=== PATIENT | male | born 1965 | race Caucasian/White ===

== ENCOUNTER 2017-11-01 14:34 | Emergency (ER) | payer OTHER ==
--- OUTSIDE RECORDS SUMMARY | 2017-11-01 14:37 | XMS REPORT | Continuity of Care Document ---
:1965 Author Organization Interface Problems Problem Status Onset Classification Date Comments Source Date Reported Radiculopathy, 10/27/[address] CERV PAIN Active [address] CERVICAL NECK Active Condition 12/26/2014 [facility] PAIN 5 Neuro Obesity Active Problem 10/29/2017 [facility] Neuro,[facility]ly [facility] Other specified 10/27/2017 [facility] spinal cord Center Spinal stenosis, 10/27/2017 [facility] region [facility] Osteophyte, 10/27/2017 [facility] vertebrae [facility] Center Essential 10/27/2017 [facility] hypertension [facility] Center Gastro-esophagea 10/27/2017 [facility] l reflux disease [facility] esophagitis Obesity, 10/27/2017 [facility] Body mass index 10/27/2017 [facility] 35.0-35.9, adult Medical [place] Polyneuropathy, 10/27/2017 [facility] Center Obstructive 10/27/2017 [facility] sleep apnea Medical (pediatric) Center Medications Medication Details Route Status Patient Ordering Order Source Instructions Provider Date pregabalin 50 MG
50 mg=1 [facility], PO, TID, # 2018 Neuro [Lyrica] 90 cap, 1 Refill(s), called to pharmacy meloxicam 15 MG
15 mg=1 [facility] tab, PO, Daily, 2018 Neuro [Mobic] # 90 tab, 1 Refill(s), [facility] Methocarbamol
500 mg=1 Active 08/30/ [facility] 500 MG Oral tab, PO, QID, X 2018 Neuro Tablet [Robaxin] 30 day, # 120 tab, 1 Refill(s), Pharmacy: [facility] Methocarbamol
500 mg=1 No Longer 07/21/ [place] 500 MG Oral tab, PO, QID, Active 2018 Medical Tablet [Robaxin] PRN muscle pain, Center X 14 day, # 56 tab, 0 Refill(s) magnesium
8.725 No Longer [place] citrate 58.2 os=629 ml, PO, Active 2017 Medical MG/ML Oral ONCE, # 300 ml, Center Solution 0 Refill(s) {21
See No Longer [facility] (Methylprednisol Instructions, Active 2017 Medical one 4 MG Oral PO, Take by [place] Tablet [Medrol]) mouth as } Pack [Medrol directed on Dosepak] label., # 1 Pack, 0 Refill(s) Docusate Sodium
100 mg=1 Active [place] 100 MG Oral cap, PO, BID, 2018 Medical Capsule [Colace] PRN [place] Constipation, # 60 cap, 0 Refill(s) famotidine
20 mg, 2 No Longer [facility] mL, Route: IVP, Active 2017 Medical Drug form: INJ, [place] Q12H, Dosing Weight 107.727, kg, Start date: 07/20/17 21:00:00 PATTERN ILLUSTRATOR, Duration: 30 day, Stop date: 08/19/17 9:00:00 CDT
Notes: (Same as: Pepcid) Can be dilute in 5-10cc NS IVP: Slow IV push over at least 2 minutes. Ambien
5 mg, 1 No Longer [facility] tab, Route: PO, Active 2017 Medical Drug form: TAB, Center Bedtime, Dosing Weight 107.727, kg, PRN as needed for sleep, Start date: 07/20/17 19:01:00 PATTERN ILLUSTRATOR, Duration: 30 day, Stop date: 08/19/17 19:00:00 CDT
Notes: (Same As: Ambien) ceFAZolin
2 gm, 20 No Longer [facility] mL, Route: IVPB, Active 2017 Medical Drug form: SOLN, Center [id number], Dosing Weight 107.727, kg, For >/=70kg, Start date: 07/20/17 15:00:00 PATTERN ILLUSTRATOR, Duration: 1 day, Stop date: 07/21/17 7:00:00 PATTERN ILLUSTRATOR, ABX Indication: Surgical Prophylaxis
Notes: (Same as Ancef) Dexamethasone
4 mg, 1 mL, No Longer [facility] Route: IVP, Drug Active 2017 Medical form: INJ, Q6H, Center Dosing Weight 107.727, kg, Start date: 07/20/17 13:00:00 PATTERN ILLUSTRATOR, Duration: 1 day, Stop date: 07/21/17 7:00:00 PATTERN ILLUSTRATOR
Notes: Concentration: 4mg/ml Docusate Sodium
100 mg, 1 No Longer [facility] 100 MG Oral cap, Route: PO, Active 2017 Medical Capsule Drug form: CAP, Center Q12H, Dosing Weight 107.727, kg, Start date: 07/20/17 9:00:00 PATTERN ILLUSTRATOR, Duration: 30 day, Stop date: 08/18/17 21:00:00 CDT
Notes: (Same as: Colace) (Do Not Crush) Famotidine
20 mg, 2 Inactive [facility] mL, Route: IVP, 2017 Medical Drug form: INJ, Center Q12H, Dosing Weight 107.727, kg, Start date: 07/20/17 9:00:00 PATTERN ILLUSTRATOR, Duration: 30 day, Stop date: 08/18/17 21:00:00 CDT
Notes: (Same as: Pepcid) Can be dilute in 5-10cc NS IVP: Slow IV push over at least 2 minutes. metoprolol
25 mg, 1 No Longer [facility] tartrate tab, Route: PO, Active 2017 Medical Drug form: TAB, Center BID, Dosing Weight 107.727, kg, Start date: 07/20/17 9:00:00 PATTERN ILLUSTRATOR, Duration: 30 day, Stop date: 08/18/17 17:00:00 CDT
Notes: (Same as: Lopressor) Hydromorphone
0.5 mg, Inactive [facility] Route: IVP, 2018 Medical Q5Min, Dosing Center Weight 107.727, kg, PRN Pain Score 7-10, Start date: 07/20/17 8:49:00 PATTERN ILLUSTRATOR, Duration: 4 doses or times, Stop date: Limited # of times Naloxone
0.4 mg, Inactive [facility] Route: IVP, 2018 Medical Q2MIN, Dosing Center Weight 107.727, kg, PRN Narcotic Reversal, Start date: 07/20/17 8:49:00 PATTERN ILLUSTRATOR, Duration: 8 doses or times, Stop date: Limited # of times Flumazenil
0.2 mg, Inactive [facility] Route: IVP, PRN, 2018 Medical Dosing Weight Center 107.727, kg, PRN Benzodiazepine Reversal, Initial dose, Start date: 07/20/17 8:49:00 PATTERN ILLUSTRATOR, Duration: 30 day, Stop date: 08/19/17 9:48:00 CDT Ondansetron
4 mg, Inactive [facility] Route: IVP, 2017 Medical ONCE, Dosing Center Weight 107.727, kg, PRN Nausea & Vomiting, Start date: 07/20/17 8:49:00 PATTERN ILLUSTRATOR Oxycodone
5 mg, Inactive 07/20[facility] Route: PO, Drug 2017 Medical form: TAB, Q4H, Center Dosing Weight 107.727, kg, PRN Pain Score 4-6, Start date: 07/20/17 8:49:00 PATTERN ILLUSTRATOR, Duration: 30 day, Stop date: 08/19/17 8:48:00 CDT sugammadex
Route: IV, Inactive [facility] (ANES) Drug form: SOLN, 2017 Medical ONCE, Stop date: Center 07/20/17 8:46:00 PATTERN ILLUSTRATOR Ondansetron
4 mg, Inactive 07/20[facility] Route: IVP, 2018 Medical ONCE, Dosing Center Weight 107.727, kg, PRN Nausea & Vomiting, Start date: 07/20/17 8:44:00 PATTERN ILLUSTRATOR Oxycodone
5 mg, Inactive 07/20[facility] Route: PO, Drug 2017 Medical form: TAB, Q4H, Center Dosing Weight 107.727, kg, PRN Pain Score 4-6, Start date: 07/20/17 8:44:00 PATTERN ILLUSTRATOR, Duration: 30 day, Stop date: 08/19/17 8:43:00 CDT Hydromorphone
0.5 mg, Inactive [facility] Route: IVP, 2018 Medical Q5Min, Dosing Center Weight 107.727, kg, PRN Pain Score 7-10, Start date: 07/20/17 8:44:00 PATTERN ILLUSTRATOR, Duration: 4 doses or times, Stop date: Limited # of times Naloxone
0.4 mg, Inactive [facility] Route: IVP, 2018 Medical Q2MIN, Dosing Center Weight 107.727, kg, PRN Narcotic Reversal, Start date: 07/20/17 8:44:00 PATTERN ILLUSTRATOR, Duration: 8 doses or times, Stop date: Limited # of times Flumazenil
0.2 mg, Inactive 07/20[facility] Route: IVP, PRN, 2018 Medical Dosing Weight Center 107.727, kg, PRN Benzodiazepine Reversal, Initial dose, Start date: 07/20/17 8:44:00 PATTERN ILLUSTRATOR, Duration: 30 day, Stop date: 08/19/17 9:43:00 CDT ondansetron
Route: IV, Inactive 07/20[facility] (ANES) Drug form: INJ, 2017 Medical ONCE, Stop date: [place] 07/20/17 8:39:00 PATTERN ILLUSTRATOR phenylephrine
Route: IV, Inactive 07/20[facility] (ANES) Drug form: INJ, 2017 Medical ONCE, Stop date: [place] 07/20/17 8:39:00 PATTERN ILLUSTRATOR ePHEDrine (ANES)
Route: IV, Inactive 07/20[facility] Drug form: INJ, 2018 Medical ONCE, Stop date: [place] 07/20/17 8:07:00 PATTERN ILLUSTRATOR acetaminophen
Route: IV, Inactive 07/20[facility] (ANES) Drug form: INJ, 2018 Medical ONCE, Stop date: [place] 07/20/17 8:06:00 PATTERN ILLUSTRATOR fentaNYL (ANES)
Route: IV, Inactive 07/20[facility] Drug form: INJ, 2018 Medical ONCE, Stop date: [place] 07/20/17 8:06:00 PATTERN ILLUSTRATOR rocuronium
Route: IV, Inactive 07/20[facility] (ANES) Drug form: INJ, 2018 Medical ONCE, Stop date: [place] 07/20/17 8:06:00 PATTERN ILLUSTRATOR midazolam (ANES)
Route: IV, Inactive 07/20[facility] Drug form: SOLN, [facility] Medical ONCE, Stop date: [place] 07/20/17 8:06:00 PATTERN ILLUSTRATOR propofol (ANES)
Route: IV, Inactive 07/20[facility] Drug form: INJ, 2018 Medical ONCE, Stop date: [place] 07/20/17 8:06:00 PATTERN ILLUSTRATOR lidocaine (ANES)
Route: IV, Inactive 07/20[facility] Drug form: INJ, 2018 Medical ONCE, Stop date: [place] 07/20/17 8:06:00 PATTERN ILLUSTRATOR Cefazolin
2 gm, 20 Inactive 07/20[facility] mL, Route: IVPB, 2018 Medical Drug form: [facility] ABXQ8H, Dosing Weight 107.727, kg, For >/=70kg, Start date: 07/20/17 8:00:00 PATTERN ILLUSTRATOR, Duration: 1 day, Stop date: 07/21/17 0:00:00 PATTERN ILLUSTRATOR, ABX Indication: Surgical Prophylaxis
Notes: (Same as Ancef) sugammadex
500 mg, 5 No Longer [facility] mL, Route: IV, Active 2017 Medical Drug form: [facility] ONCE, Start date: 07/20/17 8:00:00 PATTERN ILLUSTRATOR, Stop date: 07/20/17 8:00:00 PATTERN ILLUSTRATOR
Notes: (Same as: [place]) ceFAZolin (ANES)
Route: IV, Inactive 07/20[facility] Drug form: INJ, 2017 Medical ONCE, Stop date: [place] 07/20/17 7:56:00 PATTERN ILLUSTRATOR dexamethasone
Route: IV, Inactive 07/20[facility] (ANES) Drug form: INJ, 2017 Medical ONCE, Stop date: [place] 07/20/17 7:56:00 PATTERN ILLUSTRATOR famotidine
Route: IV, Inactive 07/20[facility] (ANES) Drug form: INJ, 2017 Medical ONCE, Stop date: [place] 07/20/17 7:56:00 PATTERN ILLUSTRATOR Lactated Ringers
Route: IV, Inactive 07/20[facility] Injection IV Total Volume: 2018 Medical (ANES) 1000 mL 1,000, Start Center date: 07/20/17 7:15:00 PATTERN ILLUSTRATOR, Stop date: 07/20/17 8:15:00 PATTERN ILLUSTRATOR Glucagon
1 mg, No Longer [place] Route: IM, Drug Active 2017 Medical form: PDR/INJ, Center PRN, Dosing Weight 107.727, kg, PRN Blood Glucose Results, Start date: 07/20/17 7:06:00 PATTERN ILLUSTRATOR, Duration: 30 day, Stop date: 08/19/17 8:05:00 CDT Dextrose 50%
12.5 gm, 25 No Longer [place] Syringe mL, Route: IVP, Active 2017 Medical Drug Form: INJ, Center Dosing Weight 107.727, kg, PRN, PRN Blood Glucose Results, Start date: 07/20/17 7:06:00 PATTERN ILLUSTRATOR, Duration: 30 day, Stop date: 08/19/17 8:05:00 CDT Insulin regular
8 unit, No Longer [place] 0.08 mL, Route: Active 2017 Medical SUB-Q, Drug Center form: SOLN, Sliding Scale, Dosing Weight 107.727, kg, PRN Blood Glucose Results, Start date: 07/20/17 7:05:00 PATTERN ILLUSTRATOR, Duration: 30 day, Stop date: 08/19/17 8:04:00 CDT
Notes: (Same as: Humulin R) Roll in palms of hands gently; Do not shake vigorously. "single patient use only" (Restricted to patients requiring a dose > 60 units) WASTE: F/P - Black; E - Municipal Trash Bin Stable for 28 days at room temperature Expires in days from Da te Metoclopramide
10 mg, 2 No Longer [facility] mL, Route: IVP, Active 2018 Medical Drug form: INJ, Center Q6H, Dosing Weight 107.727, kg, PRN Nausea & Vomiting, Start date: 07/20/17 7:05:00 PATTERN ILLUSTRATOR, Duration: 30 day, Stop date: 08/19/17 7:04:00 CDT
Notes : (Same as: Reglan) Ondansetron
4 mg, 2 mL, No Longer [facility] Route: IVP, Drug Active 2018 Medical form: INJ, Q8H, Center Dosing Weight 107.727, kg, PRN Nausea & Vomiting, Start date: 07/20/17 7:05:00 PATTERN ILLUSTRATOR, Duration: 30 day, Stop date: 08/19/17 7:04:00 CDT
Notes : (Same as: [place]) MEDICATION WASTE Product Size: 4 mg Product Wasted: ___ mg phenol 5 MG/ML
1 spray, No Longer [facility] Mucosal [place] Route: PO, PRN, Active 2017 Medical Drug form: SPRY, [place] PRN Pain Score 4-6, Start date: 07/20/17 7:05:00 PATTERN ILLUSTRATOR, Duration: 30 day, Stop date: 08/19/17 8:04:00 CDT
Notes: Chloraseptic [place] (Same as: Chloraseptic, Sore Throat [place]) WASTE: F/P - Black; E - Municipal Trash Bin Robaxin
500 mg, 1 No Longer [place] tab, Route: PO, Active 2017 Medical Drug form: TAB, Center TID, Dosing Weight 107.727, kg, PRN Muscle Spasms, Start date: 07/20/17 7:05:00 PATTERN ILLUSTRATOR, Duration: 30 day, Stop date: 08/19/17 7:04:00 CDT
Notes: (Same as:Robaxin) Acetaminophen
2 tab, No Longer [facility] 325 MG / Route: PO, Drug Active 2017 Medical Hydrocodone Form: TAB, Center Bitartrate 10 MG Dosing Weight Oral Tablet 107.727, kg, [Bastian 10/325] Q4H, PRN Pain Score 4-6, Start date: 07/20/17 7:05:00 PATTERN ILLUSTRATOR, Duration: 30 day, Stop date: 08/19/17 7:04:00 CDT
Notes: Do not exceed 4gm/day of acetaminophen. (Same as: Bastian 325/10) Morphine
2 mg, 0.5 No Longer [place] mL, Route: IVP, Active 2018 Medical Drug form: SOLN, Center Q4H, Dosing Weight 107.727, kg, PRN Pain Score 7-10, Start date: 07/20/17 7:05:00 PATTERN ILLUSTRATOR, Duration: 30 day, Stop date: 08/19/17 7:04:00 CDT
Notes: (Same as:MORPhine Sulfate) Sodium Chloride
1,000 mL, No Longer [facility] 0.9% IV 1,000 mL Rate: 50 ml/hr, Active 2017 Medical Infuse over: 20 Center hr, Route: IV, Dosing Weight 107.727 kg, Total Volume: 1,000, Start date: 07/20/17 7:05:00 PATTERN ILLUSTRATOR, Duration: 30 day, Stop date: 08/19/17 7:04:00 CDT, 2.31, m2 ceFAZolin +
2 gm, No Longer [facility] sterile water 20 Route: IV, PRE Active 2017 Medical mL OP, Start date: Center 07/20/17 1:00:00 PATTERN ILLUSTRATOR, Duration: 1 day, Stop date: 07/21/17 0:59:00 PATTERN ILLUSTRATOR, ABX Indication: Surgical Prophylaxis
Notes: (Same As: Dima Quintero) MEDICATION WASTE Product Size: 1000 mg Product Wasted: ___ mg Tylenol
PO, 0 Active [facility] Refill(s) [address] [place] [address] Omeprazole
PO, Daily, Active [facility] 0 Refill(s) 2018 [facility] Zanaflex
PO, 0 No Longer [facility] Refill(s) Active 2018 [facility] Ambien
PO, Active 07/14[facility] Bedtime, 0 2017 Medical Refill(s) [place] LYRICA CAPS Active [facility] 2014 Neuro METOPROLOL Active [facility] TARTRATE TABS 2015 Neuro Allergies, Adverse Reactions, Alerts Substance Category Reaction Severity Reaction Status Date Comments Source type Reported Bee Sting Assertion Drug Active [facility] allergy Neuro NKDA Assertion Drug Active [facility] allergy Neuro Immunizations Immunization Date Given Site Status Last Updated Comments Source Results Order Results Value Reference Date Interpretation Comments Source Name Range Vital Signs Vital Sign Value Date Comments Source BMI Calculated 33.3 09/15[facility] Weight 102.273 [facility]/15[facility]2017 [facility] Height 175.26 cm 09/15/[address] [facility] Heart Rate 64 09/15/2017 [facility] Temperature Oral (F) 98.1 F 09/15/2017 [facility] Systolic (mm Hg) 163 09/15/2017 [facility] Diastolic (mm Hg) 89 09/15/2017 [facility] Temperature Oral (F) 97.7 F 07/21/2017 [facility] Respitory Rate 18 07/21/2017 [facility] Heart Rate 79 07/21/2017 [facility] Systolic (mm Hg) 129 07/21/2017 [facility] Diastolic (mm Hg) 88 07/21/2017 [facility] Temperature Oral (F) 98.1 F 07/21/2017 [facility] Heart Rate 60 07/21/2017 [facility] Respitory Rate 18 07/21/2017 [facility] Systolic (mm Hg) 128 07/21/2017 [facility] Diastolic (mm Hg) 91 07/21/2017 [facility] Heart Rate 72 07/21/2017 [facility] Temperature Oral (F) 98.8 F 07/21/2017 [facility] Respitory Rate 17 07/21/2017 [facility] Systolic (mm Hg) 148 07/21/2017 [facility] Diastolic (mm Hg) 79 07/21/2017 [facility] BMI Calculated 35.59 07/20/2017 [facility] Height 173.99 cm 07/20/2017 [facility] Weight 107.727 07/20/2017 [facility] BMI Calculated 35.22 07/14/2017 [facility] Height 175.26 cm 07/14/2017 [facility] Weight 108.182 07/14/2017 [facility] Height 175.26 cm 07/09/2017 [facility] Neuro Weight 105.455 07/09/2017 [facility] BMI Calculated 34.33 07/09/2017 [facility] Heart Rate 56 07/09/2017 [facility] Temperature Oral (F) 97.9 F 07/09/2017 [facility] Systolic (mm Hg) 116 07/09/2017 [facility] Diastolic (mm Hg) 76 07/09/2017 [facility] Weight 105.455 06/23/2017 [facility] BMI Calculated 34.33 06/23/2017 [facility] Height 175.26 cm 06/23/2017 [facility] Neuro Systolic (mm Hg) 142 06/23/2017 [facility] Neuro Diastolic (mm Hg) 87 06/23/2017 [facility] Neuro Temperature Oral (F) 98.7 F 06/23/2017 [facility] Neuro Heart Rate 53 06/23/2017 [facility] Neuro Weight 240 12/26/2014 [facility] Neuro Height 70 12/26/2014 [facility] Neuro Temperature Oral (F) 97.9 F 12/26/2014 [facility] Neuro Heart Rate 71 12/26/2014 [facility] Neuro Systolic (mm Hg) 107 12/26/2014 [facility] Neuro Diastolic (mm Hg) 68 12/26/2014 [facility] Neuro Encounters Location Location Encounter Encounter Reason Attending ADM DC Status Source Details Type Number For Provider Date Date Visit [facility] Office [id number] 12/26 [facility] Neuroscienc Visit 7870 Neuro e [facility] Outpatient [id number] GAURAV BOLAND 02/04 Active [facility] Phone [id number] 05/05 05/07 [facility] Neurosurger Message /2016 Neuro y [facility] Phone [id number] 05/11 05/13 [facility] Neurosurger Message /2016 Neuro y [facility] Spine Phone [id number] 05/19 05/21 [facility] Message /2017 Neuro Outpatient [id number] GAURAV BOLAND 06/02 Active [facility] Sp[facility] Ambulatory [id number] [place] 06/02 06/02 [facility] Pre-Reg Hair Neuro Outpatient [id number] GAURAV BOLAND 06/23 Active [facility] Sp[facility] Outpatient [id number] [place] 06/23 06/24 [facility] Hair /2017 Neuro [facility] Spine Phone [id number] 07/01 07/03 [facility] Message /2017 Neuro MNA Phone [id number] 07/07 07/09 [facility] Neurosurger Message /2017 Neuro y [facility]NA Phone [id number] 07/07 07/09 [facility] Neurosurger Message /2017 Neuro y [facility] Outpatient [id number] GAURAV BOLAND 07/09 Active [facility] Spine Outpatient [id number] [place] 07/09 07/10 [facility] Hair /2017 [facility] [id number] Gaurav Boland 07/20 07/21 [facility] Outpatient /2017 [facility] Outpatient [id number] GAURAV BOLAND 07/20 Active [facility] Sp[facility] Outpatient [id number] [place] 07/20 07/21 [facility] Hair /2017 Neuro Outpatient [id number] LANA 08/04 Active [facility] Phone [id number] 08/30 09/01 [facility] Message /2017 Neuro [facility] Spine Phone [id number] 09/10 09/12 [facility] Message /2017 Neuro [facility] Spine Phone [id number] 09/14 09/16 [facility] Message /2017 Neuro Outpatient [id number] GAURAV BOLAND 09/15 Active [facility] Sp[facility] Outpatient [id number] Gaurav Boland 09/15 09/16 [facility] /2017 Neuro [facility] Spine Phone [id number] 09/15 09/17 [facility] Message /2017 Neuro [facility] Spine Phone [id number] 10/06 10/08 [facility] Message /2017 Neuro MNA Spine Phone [id number] 10/19 10/21 [facility] Message /2017 Neuro M[facility] Spine Phone [id number] 10/19 10/21 [facility]2017 Neuro [facility] Spine Phone [id number] 10/20 10/22 [facility] Message /2017 Neuro [facility] Spine Phone [id number] 10/25 10/27 [facility] Message /2017 Neuro [facility] Spine Phone [id number] 10/25 10/27 [facility] Message /2017 Neuro Outpatient [id number] GAURAV BOLAND 11/24 Active [facility] Procedures Procedure Code Date Perfomer Comments Source Cervical spinal [id number] 07/20/2017 07/20/17 C4-7 [facility] fusion by anterior ACDF w/instr Neuro technique<sup>1</sup > Cervical spinal [id number] 07/20/2017 07/20/17 C4-7 [facility] fusion by anterior ACDF w/instr Medical technique<sup>1</sup Center > ACL - Reconstruction [id number] [facility] of anterior cruciate Neuro ligament Cyst<sup>2</sup> [id number] removed from [facility] left foot at Neuro age 5. Cyst<sup>1</sup> [id number] removed from [facility] left foot at Neuro age 5. ACL - Reconstruction [id number] [facility] anterior cruciate Medical ligament [place] Cyst<sup>2</sup> [id number] removed from [facility] left foot at Medical age 5. Center
--- OUTSIDE RECORDS SUMMARY | 2017-11-01 14:38 | XMS REPORT | Summary of Care ---
:1965 Author Organization [facility] Spine [facility] Address [address] [place] [address] [address] [place] [address]- Encounter HQ Encntr_aliberto(FIN) [id number] Date(s): 10/25/17 - 10/26/17 [facility] Spine [address] [place] [address] [phone] Vital Signs No data available for this section Problem List Condition Effective Dates Status Health Status Informant Obesity(Confirmed) Active Allergies, Adverse Reactions, Alerts Substance Reaction Severity Status Bee Sting Active Medications No data available for this section Results No data available for this section Immunizations No data available for this section Procedures Procedure Date Related Diagnosis Body Site Status Cervical spinal fusion by anterior 07/20/17 Completed technique1 ACL - Reconstruction of anterior Completed cruciate ligament Cyst2 Completed 27/10/17 C4-7 ACDF w/[id number] from left foot at age 5. Social History Social History Type Response Alcohol Never Smoking Status Former smoker; Type: Chewing tobacco; Exposure to Tobacco Smoke None; Cigarette Smoking Last 365 Days No; Reg Smoking Cessation Counseling No1 entered on: 09/15/17 1QUIT SMOKING CIGARETTES 25+ YEARS AGO, QUIT SMOKING CIGARS 8 MONTHS AGO. CURRENTLY DIPS TOBACCO. Assessment and Plan No data available for this section
--- OUTSIDE RECORDS SUMMARY | 2017-11-01 14:39 | XMS REPORT | Summary of Care ---
:1965 Author Organization [facility] Spine [facility] Address [address] [place] [address] [address] [place] [address]- Encounter HQ Encntr_alias(FIN) [id number] Date(s): 10/25/17 - 10/26/17 [facility] Spine [address] [place] [phone] Vital Signs No data available for this [...] cruciate ligament Cyst2 Completed 27/10/17 C4-7 ACDF w/[id number] from left foot at age 5. Social [...]
--- OUTSIDE RECORDS SUMMARY | 2017-11-01 14:39 | XMS REPORT | Continuity of Care Document ---
:1965 Author Organization [facility] Care Team Providers Name Role Phone Yuan oKhli MD Unavailable Insurance Providers Payer name Policy type / Policy ID Covered constitution party ID Policy Aguirre Coverage type [employer] - OPTIONS (PPO) UNITED HEALTHCARE - CHOICE PLUS UNITED HEALTHCARE - OPTIONS (PPO) UNITED HEALTHCARE - OPTIONS (PPO) Encounters Encounter Performer Location Date Office Visit Yuan Kohli MD [facility] Dec 26, 2014 Problems Problem Effective Dates Problem Status CERVICAL NECK PAIN Dec 26, 2014 Active Procedures Date Description Comments Dec 26, 2014 smoking status Never smoker Medications Medication Instructions Start Date Status LYRICA CAPS Dec 26, 2014 Active METOPROLOL TARTRATE TABS Dec 26, 2014 Active Vital Signs Date Description Test Result Dec 26, 2014 weight E&M - 3141-9 WEIGHT 240 lb Dec 26, 2014 height E&M - 8302-2 HEIGHT 70 in Dec 26, 2014 temperature E&M TEMPERATURE 97.9 deg f Dec 26, 2014 pulse rate E&M - 8867-4 PULSE RATE 71 /min Dec 26, 2014 blood pressure, systolic - 8480-6 BP SYSTOLIC 107 mm Hg Dec 26, 2014 blood pressure, diastolic - 8462-4 BP DIASTOLIC 68 mm Hg
[2017-11-01] MEDS ORDERED: LIDOCAINE 1% MPF 2 ML AMPULE ONE (15:03)
[2017-11-01] MEDS ORDERED: LIDOCAINE 1% W/EPI 1:100,000 MDV 50 ML VIAL ONE (15:04)
[2017-11-01] MEDS ORDERED: TETANUS & DIPHTHERIA TOX,ADULT 0.5 ML VIAL ONE (15:07)
--- NOTE | 2017-11-01 15:31 | ER ---
Nurse's Notes [facility] Name: Freddy Camejo Age: 51 yrs Sex: Male : 1965 Arrival Date: 11/01/2017 Time: 14:41 Bed 20 Private MD: Diagnosis: Laceration without foreign body, right lower leg Presentation: 11/01 14:41 Presenting complaint: Patient states: 30 mins ago, my R lower leg hit a [employer] laminate counter top and cut a part of my R lower leg;. Transition of care: patient was not received from another setting of care. Complicating Factors: There are no complicating factors for this patient. Onset of symptoms was November 01, 2017 at 14:15. Risk Assessment: Do you want to hurt yourself or someone else? Patient reports no desire to harm self or others. Initial Sepsis Screen: Does the patient meet any 2 criteria? No. Patient's initial sepsis screen is negative. Does the patient have a suspected source of infection? No. Patient's initial sepsis screen is negative. Care prior to arrival: None. 14:41 Method Of Arrival: Ambulatory 14:41 Acuity: LILY 4 hj Triage Assessment: 14:46 General: Appears in no apparent distress. uncomfortable, Behavior is calm, cooperative, hj appropriate for age. Pain: Complains of pain in right leg. Injury Description: Laceration. Historical: - Allergies: 14:46 bee stings; hj - Home Meds: 14:46 Metoprolol Tartrate Oral [Active]; Lyrica Oral [Active]; Ambien Oral [Active]; Naproxen hj Oral [Active]; - PMHx: 14:46 neck pain; Hypertension; hj - PSHx: 14:46 neck surgery; tendon surgery; hj - Immunization history:: Adult Immunizations up to date. - Social history:: Smoking status: Patient/guardian denies using tobacco, Patient/guardian denies using alcohol. - Ebola Screening: : Patient negative for fever greater than or equal to 101.5 degrees Fahrenheit, and additional compatible Ebola Virus Disease symptoms Patient denies exposure to infectious person Patient denies travel to an Ebola-affected area in the 21 days before illness onset. - Family history:: not pertinent. Screenin:47 Abuse screen: Denies threats or abuse. Denies injuries from another. Nutritional hj screening: No deficits noted. Tuberculosis screening: No symptoms or risk factors identified. Fall Risk None identified. Assessment: 14:47 Musculoskeletal: No signs and/or symptoms reported regarding the musculoskeletal system.hj 15:05 General: Appears in no apparent distress. comfortable, well developed, Behavior is sv calm, cooperative, appropriate for age. Pain: Complains of pain in lateral aspect of right calf Pain currently is 1 out of 10 on a pain scale. Neuro: Level of Consciousness is awake, alert, obeys commands, Oriented to person, place, time, situation, Moves all extremities. Full function Gait is steady. Respiratory: Respiratory effort is even, unlabored, Respiratory pattern is regular, symmetrical. Derm: Skin is pink, warm \T\ dry. Musculoskeletal: Range of motion: intact in all extremities. Injury Description: Laceration sustained to lateral aspect of right calf is 0.5 to 2.5 cm long, 2.6 to 7.5 cm long, not bleeding, 2 different laceration sites noted was sustained 30-60 minutes ago. is bleeding no active bleeding noted. 15:12 Reassessment: Dr Streeter at the bedside performing the laceration repair. sv Vital Signs: 14:47 BP 139 / 85; Pulse 71; Resp 18; Temp 98.2(O); Pulse Ox 96% on R/A; Weight 102.51 kg; hj Height 5 ft. 10 in. (177.80 cm); Pain 1/10; 14:47 Body Mass Index 32.43 (102.51 kg, 177.80 cm) ED Course: 14:41 Patient arrived in ED. hj 14:45 Triage completed. hj 14:47 Arm band placed on left wrist. hj 14:50 Patient has correct armband on for positive identification. hj 14:51 Erick Streeter MD is Attending Physician. [facility] 15:08 Jhoana Aguirre RN is Primary Nurse. 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 Exp: sv 01/14/2020. Lot #: [id number]. } Route: IM; Site: right deltoid; Outcome: 15:30 Discharge ordered by . [facility] 15:36 Patient left the ED. sv Signatures: Jhoana Aguirre RN RN Ferdinand, Erick, MD MD ashlee Gustabo, Jj, RN RN hj
--- NOTE | 2017-11-01 15:31 | EDPHYS ---
Physician Documentation [facility] Name: Freddy Camejo Age: 51 yrs Sex: Male : 1965 Arrival Date: 11/01/2017 Time: 14:41 Bed 20 Private MD: ED Physician Erick Streeter HPI: 11/01 15:26 This 51 yrs old Male presents to ER via Ambulatory with complaints of ashlee Laceration To Leg. 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 The ashlee laceration(s) is(are) located on the lateral aspect of right calf and right leg. Onset: The symptoms/episode began/occurred just prior to arrival. Associated signs and symptoms: The patient has no apparent associated signs or symptoms. The patient has experienced similar episodes in the past, multiple times. Historical: - Allergies: 14:46 bee stings; hj - Home Meds: 14:46 Metoprolol Tartrate Oral [Active]; Lyrica Oral [Active]; Ambien Oral [Active]; Naproxen hj Oral [Active]; - PMHx: 14:46 neck pain; Hypertension; hj - PSHx: 14:46 neck surgery; tendon surgery; hj - Immunization history:: Adult Immunizations up to date. - Social history:: Smoking status: Patient/guardian denies using tobacco, Patient/guardian denies using alcohol. - Ebola Screening: : Patient negative for fever greater than or equal to 101.5 degrees Fahrenheit, and additional compatible Ebola Virus Disease symptoms Patient denies exposure to infectious person Patient denies travel to an Ebola-affected area in the 21 days before illness onset. - Family history:: not pertinent. ROS: 15:26 Constitutional: Negative for fever, chills, and weight loss, Eyes: Negative for injury, ashlee pain, redness, and discharge, ENT: Negative for injury, pain, and discharge, Neck: Negative for injury, pain, and swelling, Cardiovascular: Negative for chest pain, palpitations, and edema, Respiratory: Negative for shortness of breath, cough, wheezing, and pleuritic chest pain, Abdomen/GI: Negative for abdominal pain, nausea, vomiting, diarrhea, and constipation, Back: Negative for injury and pain, : Negative for injury, bleeding, discharge, and swelling, Skin: Negative for injury, rash, and discoloration, Neuro: Negative for headache, weakness, numbness, tingling, and seizure, Psych: Negative for depression, anxiety, suicide ideation, homicidal ideation, and hallucinations, Allergy/Immunology: Negative for hives, rash, and allergies, Endocrine: Negative for neck swelling, polydipsia, polyuria, polyphagia, and marked weight changes, Hematologic/Lymphatic: Negative for swollen nodes, abnormal bleeding, and unusual bruising. 15:26 MS/extremity: Positive for laceration, pain. Exam: 15:26 Constitutional: This is a well developed, well nourished patient who is awake, alert, ashlee and in no acute distress. Head/Face: Normocephalic, atraumatic. Eyes: Pupils equal round and reactive to light, extra-ocular motions intact. Lids and lashes normal. Conjunctiva and sclera are non-icteric and not injected. Cornea within normal limits. Periorbital areas with no swelling, redness, or edema. ENT: Nares patent. No nasal discharge, no septal abnormalities noted. Tympanic membranes are normal and external auditory canals are clear. Oropharynx with no redness, swelling, or masses, exudates, or evidence of obstruction, uvula midline. Mucous membranes moist. Neck: Trachea midline, no thyromegaly or masses palpated, and no cervical lymphadenopathy. Supple, full range of motion without nuchal rigidity, or vertebral point tenderness. No Meningismus. Chest/axilla: Normal chest wall appearance and motion. Nontender with no deformity. No lesions are appreciated. Cardiovascular: Regular rate and rhythm with a normal S1 and S2. No gallops, murmurs, or rubs. Normal PMI, no JVD. No pulse deficits. Respiratory: Lungs have equal breath sounds bilaterally, clear to auscultation and percussion. No rales, rhonchi or wheezes noted. No increased work of breathing, no retractions or nasal flaring. Abdomen/GI: Soft, non-tender, with normal bowel sounds. No distension or tympany. No guarding or rebound. No evidence of tenderness throughout. Back: No spinal tenderness. No costovertebral tenderness. Full range of motion. Male : Normal genitalia with no discharge or lesions. Skin: Warm, dry with normal turgor. Normal color with no rashes, no lesions, and no evidence of cellulitis. Neuro: Awake and alert, GCS 15, oriented to person, place, time, and situation. Cranial nerves II-XII grossly intact. Motor strength 5/5 in all extremities. Sensory grossly intact. Cerebellar exam normal. Normal gait. Psych: Awake, alert, with orientation to person, place and time. Behavior, mood, and affect are within normal limits. 15:26 Musculoskeletal/extremity: Extremities: noted in the lateral aspect of right calf and right leg: laceration. Vital Signs: 14:47 BP 139 / 85; Pulse 71; Resp 18; Temp 98.2(O); Pulse Ox 96% on R/A; Weight 102.51 kg; hj Height 5 ft. 10 in. (177.80 cm); Pain 1/10; 14:47 Body Mass Index 32.43 (102.51 kg, 177.80 cm) hj Laceration: 15:26 Wound Repair of 5cm ( 2.0in ) subcutaneous laceration to lateral aspect of right calf ashlee and right leg. Linear shaped.. Distal neuro/vascular/tendon intact. Anesthesia: Local anesthetic administered with 8 mls of 1% lidocaine w/ Epi. Wound prep: Moderate cleansing by me. Skin closed with 8 4-0 Prolene using vertical mattress sutures and sterile technique. Dressed with Neosporin, non-adherent dressing. Patient tolerated well. MDM: 14:51 Patient medically screened. [facility] 15:26 Data reviewed: vital signs, nurses notes. 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 Exp: sv 01/14/2020. Lot #: [id number]. } Route: IM; Site: right deltoid; Disposition: 11/01/17 15:30 Discharged to Home. Impression: Laceration without foreign body, right lower leg. - Condition is Stable. - Discharge Instructions: Laceration Care, Adult, Laceration Care, Adult, [id number]. - Medication Reconciliation Form, Thank You Letter, Antibiotic Education, Prescription Opioid Use form. - Follow up: Private Physician; When: 7 - 10 days; Reason: Recheck today's complaints, Continuance of care, Re-evaluation by your physician. - Problem is new. - Symptoms have improved. Signatures: Jhoana Aguirre, RN RN Erick Patel MD MD cha Joaquin, Henry RN ANITA hj Jannette Barrett RN RN tw2 Corrections: (The following items were deleted from the chart) 15:36 15:30 11/01/2017 15:30 Discharged to Home. Impression: Laceration without foreign body, sv right lower leg. Condition is Stable. Forms are Medication Reconciliation Form, Thank You Letter, Antibiotic Education, Prescription Opioid Use. Follow up: Private Physician; When: 7 - 10 days; Reason: Recheck today's complaints, Continuance of care, Re-evaluation by your physician. Problem is new. Symptoms have improved. ashlee
[2017-11-01 16:17] VITALS: BP 139/85; TEMP 98.2; O2SAT 96
== END 2017-11-01 15:36 | disposition home or self-care (01) ==
LOC: ER 14:34
PROC: 0HQKXZZ Repair Right Lower Leg Skin, External Approach (ICD-10-PCS; principal; 2017-11-01)
DX: S81.811A Laceration without foreign body, right lower leg, initial encounter (principal); W45.8XXA Other foreign body or object entering through skin, initial encounter; I10 Essential (primary) hypertension; Y93.89 Activity, other specified; Y92.89 Other specified places as the place of occurrence of the external cause; Y99.0 Civilian activity done for income or pay; Z91.030 Bee allergy status; Z23 Encounter for immunization
CPT/HCPCS: 90714; 99282; J2001

== ENCOUNTER 2017-11-13 15:38 | Emergency (ER) | payer OTHER ==
--- OUTSIDE RECORDS SUMMARY | 2017-11-13 15:41 | XMS REPORT | Continuity of Care Document ---
:1965 Author Organization Interface Problems Problem Status Onset Classification Date Comments Source Date Reported Radiculopathy, 10/27/[address] CERV PAIN Active [address] CERVICAL NECK Active Condition 12/26/2014 [facility] PAIN 5 Neuro Obesity Active Problem 11/12/2017 [facility] Neuro,[facility] Other specified 10/27/2017 [facility] spinal cord Center Spinal stenosis, 10/27/2017 [facility] region [facility] Osteophyte, 10/27/2017 [facility] vertebrae [facility] Center Essential 10/27/2017 [facility] hypertension [facility] Gastro-esophagea 10/27/2017 [facility] l reflux disease [facility] Center esophagitis Obesity, 10/27/2017 [facility] Body mass index 10/27/2017 [facility] 35.0-35.9, adult Medical [place] Polyneuropathy, 10/27/2017 [facility] Center Obstructive 10/27/2017 [facility] sleep apnea Medical (pediatric) Center Medications Medication Details Route Status Patient Ordering Order Source Instructions Provider Date methocarbamol
See Active 11/08/ [facility] 500 mg oral Instructions, # 2018 Neuro tablet 84 tab, TAKE ONE TABLET BY MOUTH FOUR TIMES A DAY, Pharmacy: [place] [id number] pregabalin 50 MG
50 mg=1 Active 09/15/ M[facility] Oral Capsule cap, PO, TID, # 2018 Neuro [Lyrica] 90 cap, 1 Refill(s), called to pharmacy meloxicam 15 MG
15 mg=1 Active 09/15/ [facility] Oral Tablet tab, PO, Daily, 2018 Neuro [Mobic] # 90 tab, 1 Refill(s), Pharmacy: [place] [id number] Methocarbamol
500 mg=1 Active 08/30/ [facility] 500 MG Oral tab, PO, QID, X 2018 Neuro Tablet [Robaxin] 30 day, # 120 tab, 1 Refill(s), Pharmacy: [place] [id number] meloxicam 15 MG
15 mg=1 No Longer 08/05/ [facility] Oral Tablet tab, PO, Daily, Active 2017 Neuro [Mobic] # 90 tab, 0 Refill(s), Pharmacy: [place] [id number] Diclofenac
4 gm=1 Active [facility] Sodium 0.01 appl, TOP, BID, 2018 Neuro MG/MG Topical PRN Apply to Gel [Voltaren] affected area, apply small amount to affected area, # 100 gm, 0 Refill(s), Pharmacy: [place] [id number] Methocarbamol
500 mg=1 No Longer [facility] 500 MG Oral tab, PO, QID, Active 2017 Medical Tablet [Robaxin] PRN muscle pain, Center X 14 day, # 56 tab, 0 Refill(s) magnesium
8.725 No Longer [facility] citrate 58.2 rg=019 ml, PO, Active 2017 Medical MG/ML Oral ONCE, # 300 ml, Center Solution 0 Refill(s) {21
See No Longer [facility] (Methylprednisol Instructions, Active 2017 Medical one 4 MG Oral PO, Take by [place] Tablet [Medrol]) mouth as } Pack [Medrol directed on Dosepak] label., # 1 Pack, 0 Refill(s) Docusate Sodium
100 mg=1 Active [facility] 100 MG Oral cap, PO, BID, 2018 Medical Capsule [Colace] PRN Center Constipation, # 60 cap, 0 Refill(s) famotidine
20 mg, 2 No Longer [facility] mL, Route: IVP, Active 2017 Medical Drug form: INJ, Center Q12H, Dosing Weight 107.727, kg, Start date: 07/20/17 21:00:00 [employer], Duration: 30 day, Stop date: 08/19/17 9:00:00 CDT
Notes: (Same as: Pepcid) Can be dilute in 5-10cc NS IVP: Slow IV push over at least 2 minutes. Ambien
5 mg, 1 No Longer [facility] tab, Route: PO, Active 2017 Medical Drug form: TAB, Center Bedtime, Dosing Weight 107.727, kg, PRN as needed for sleep, Start date: 07/20/17 19:01:00 [employer], Duration: 30 day, Stop date: 08/19/17 19:00:00 CDT
Notes: (Same As: Ambien) ceFAZolin
2 gm, 20 No Longer [facility] mL, Route: IVPB, Active 2018 Medical Drug form: SOLN, Center ABXQ8H, Dosing Weight 107.727, kg, For >/=70kg, Start date: 07/20/17 15:00:00 [employer], Duration: 1 day, Stop date: 07/21/17 7:00:00 [employer] ARCHITECT, ABX Indication: Surgical Prophylaxis
Notes: (Same as Ancef) Dexamethasone
4 mg, 1 mL, No Longer [facility] Route: IVP, Drug Active 2017 Medical form: INJ, Q6H, Center Dosing Weight 107.727, kg, Start date: 07/20/17 13:00:00 [employer]CH[employer], Duration: 1 day, Stop date: 07/21/17 7:00:00 [employer] ARCHITECT
Notes: Concentration: 4mg/ml Docusate Sodium
100 mg, 1 No Longer [facility] 100 MG Oral cap, Route: PO, Active 2018 Medical Capsule Drug form: CAP, Center Q12H, Dosing Weight 107.727, kg, Start date: 07/20/17 9:00:00 [employer]CH[employer], Duration: 30 day, Stop date: 08/18/17 21:00:00 CDT
Notes: (Same as: Colace) (Do Not Crush) Famotidine
20 mg, 2 Inactive [facility] mL, Route: IVP, 2018 Medical Drug form: INJ, Center Q12H, Dosing Weight 107.727, kg, Start date: 07/20/17 9:00:00 [employer]CH[employer], Duration: 30 day, Stop date: 08/18/17 21:00:00 CDT
Notes: (Same as: Pepcid) Can be dilute in 5-10cc NS IVP: Slow IV push over at least 2 minutes. metoprolol
25 mg, 1 No Longer [facility] tartrate tab, Route: PO, Active 2017 Medical Drug form: TAB, Center BID, Dosing Weight 107.727, kg, Start date: 07/20/17 9:00:00 [employer], Duration: 30 day, Stop date: 08/18/17 17:00:00 CDT
Notes: (Same as: Lopressor) Hydromorphone
0.5 mg, Inactive [facility] Route: IVP, 2018 Medical Q5Min, Dosing Center Weight 107.727, kg, PRN Pain Score 7-10, Start date: 07/20/17 8:49:00 [employer], Duration: 4 doses or times, Stop date: Limited # of times Naloxone
0.4 mg, Inactive [facility] Route: IVP, 2018 Medical Q2MIN, Dosing Center Weight 107.727, kg, PRN Narcotic Reversal, Start date: 07/20/17 8:49:00 [employer], Duration: 8 doses or times, Stop date: Limited # of times Flumazenil
0.2 mg, Inactive 07/20[facility] Route: IVP, PRN, 2018 Medical Dosing Weight Center 107.727, kg, PRN Benzodiazepine Reversal, Initial dose, Start date: 07/20/17 8:49:00 [employer], Duration: 30 day, Stop date: 08/19/17 9:48:00 CDT Ondansetron
4 mg, Inactive 07/20[facility] Route: IVP, 2018 Medical ONCE, Dosing Center Weight 107.727, kg, PRN Nausea & Vomiting, Start date: 07/20/17 8:49:00 [employer]CH[employer] Oxycodone
5 mg, Inactive [facility] Route: PO, Drug 2018 Medical form: TAB, Q4H, Center Dosing Weight 107.727, kg, PRN Pain Score 4-6, Start date: 07/20/17 8:49:00 [employer]CH[employer], Duration: 30 day, Stop date: 08/19/17 8:48:00 CDT sugammadex
Route: IV, Inactive [facility] (ANES) Drug form: SOLN, 2018 Medical ONCE, Stop date: Center 07/20/17 8:46:00 [employer]CH[employer]ECT Ondansetron
4 mg, Inactive 07/20[facility] Route: IVP, 2018 Medical ONCE, Dosing Center Weight 107.727, kg, PRN Nausea & Vomiting, Start date: 07/20/17 8:44:00 [employer]CH[employer] Oxycodone
5 mg, Inactive 07/20[facility] Route: PO, Drug 2018 Medical form: TAB, Q4H, Center Dosing Weight 107.727, kg, PRN Pain Score 4-6, Start date: 07/20/17 8:44:00 [employer]CH[employer], Duration: 30 day, Stop date: 08/19/17 8:43:00 CDT Hydromorphone
0.5 mg, Inactive [facility] Route: IVP, 2018 Medical Q5Min, Dosing Center Weight 107.727, kg, PRN Pain Score 7-10, Start date: 07/20/17 8:44:00 [employer], Duration: 4 doses or times, Stop date: Limited # of times Naloxone
0.4 mg, Inactive 07/20[facility] Route: IVP, 2018 Medical Q2MIN, Dosing Center Weight 107.727, kg, PRN Narcotic Reversal, Start date: 07/20/17 8:44:00 [employer]CH[employer], Duration: 8 doses or times, Stop date: Limited # of times Flumazenil
0.2 mg, Inactive 07/20[facility] Route: IVP, PRN, 2018 Medical Dosing Weight Center 107.727, kg, PRN Benzodiazepine Reversal, Initial dose, Start date: 07/20/17 8:44:00 [employer]CH[employer], Duration: 30 day, Stop date: 08/19/17 9:43:00 CDT ondansetron
Route: IV, Inactive 07/20[facility] (ANES) Drug form: INJ, 2018 Medical ONCE, Stop date: [place] 07/20/17 8:39:00 [employer]CH[employer] phenylephrine
Route: IV, Inactive 07/20[facility] (ANES) Drug form: INJ, 2018 Medical ONCE, Stop date: [place] 07/20/17 8:39:00 [employer] ARCHITECT ePHEDrine (ANES)
Route: IV, Inactive 07/20[facility] Drug form: INJ, 2017 Medical ONCE, Stop date: [place] 07/20/17 8:07:00 [employer]CH[employer] acetaminophen
Route: IV, Inactive [facility] (ANES) Drug form: INJ, 2017 Medical ONCE, Stop date: [place] 07/20/17 8:06:00 [employer] ARCH[employer]ECT fentaNYL (ANES)
Route: IV, Inactive 07/20[facility] Drug form: INJ, 2017 Medical ONCE, Stop date: [place] 07/20/17 8:06:00 [employer] ARCHITECT rocuronium
Route: IV, Inactive 07/20[facility] (ANES) Drug form: INJ, 2017 Medical ONCE, Stop date: [place] 07/20/17 8:06:00 [employer] ARCHITECT midazolam (ANES)
Route: IV, Inactive 07/20[facility] Drug form: SOLN, [facility] Medical ONCE, Stop date: [place] 07/20/17 8:06:00 S[employer]TER[employer]ISE ARCHITECT propofol (ANES)
Route: IV, Inactive 07/20[facility] Drug form: INJ, 2017 Medical ONCE, Stop date: [place] 07/20/17 8:06:00 S[employer]IOR ENTER[employer]ISE ARCHITECT lidocaine (ANES)
Route: IV, Inactive 07/20[facility] Drug form: INJ, 2017 Medical ONCE, Stop date: [place] 07/20/17 8:06:00 S[employer]TER[employer]ISE ARCHITECT Cefazolin
2 gm, 20 Inactive 07/20[facility] mL, Route: IVPB, 2017 Medical Drug form: [facility] ABXQ8H, Dosing Weight 107.727, kg, For >/=70kg, Start date: 07/20/17 8:00:00 S[employer] ARCHITECT, Duration: 1 day, Stop date: 07/21/17 0:00:00 S[employer]TER[employer]ISE ARCHITECT, ABX Indication: Surgical Prophylaxis
Notes: (Same as Ancef) sugammadex
500 mg, 5 No Longer [facility] mL, Route: IV, Active [facility] Start date: 07/20/17 8:00:00 S[employer]IOR ENTER[employer]ISE ARCHITECT, Stop date: 07/20/17 8:00:00 S[employer]IOR ENTERPRISE ARCHITECT
Notes: (Same as: [place]) ceFAZolin (ANES)
Route: IV, Inactive 03/06[facility] Drug form: INJ, 2018 Medical ONCE, Stop date: [place] 07/20/17 7:56:00 S[employer] ENTER[employer]ISE ARCHITECT dexamethasone
Route: IV, Inactive [facility] (ANES) Drug form: INJ, 2018 Medical ONCE, Stop date: [place] 07/20/17 7:56:00 S[employer]TER[employer] ARCHITECT famotidine
Route: IV, Inactive [facility] (ANES) Drug form: INJ, 2018 Medical ONCE, Stop date: Center 07/20/17 7:56:00 [employer] ENTER[employer]ISE ARCHITECT Lactated Ringers
Route: IV, Inactive [facility] Injection IV Total Volume: 2018 Medical ([facility]) 1000 mL 1,000, Start Center date: 07/20/17 7:15:00 S[employer]TER[employer] ARCHITECT, Stop date: 07/20/17 8:15:00 S[employer]IOR ENTER[employer]ISE ARCHITECT Glucagon
1 mg, No Longer [facility] Route: IM, Drug Active 2017 Medical form: PDR/INJ, Center PRN, Dosing Weight 107.727, kg, PRN Blood Glucose Results, Start date: 07/20/17 7:06:00 S[employer]TER[employer] ARCHITECT, Duration: 30 day, Stop date: 08/19/17 8:05:00 CDT Dextrose 50%
12.5 gm, 25 No Longer [facility] Syringe mL, Route: IVP, Active 2017 Medical Drug Form: INJ, Center Dosing Weight 107.727, kg, PRN, PRN Blood Glucose Results, Start date: 07/20/17 7:06:00 S[employer]IOR [employer]TER[employer] ARCHITECT, Duration: 30 day, Stop date: 08/19/17 8:05:00 CDT Insulin regular
8 unit, No Longer [facility] 0.08 mL, Route: Active 2018 Medical SUB-Q, Drug Center form: SOLN, Sliding Scale, Dosing Weight 107.727, kg, PRN Blood Glucose Results, Start date: 07/20/17 7:05:00 S[employer]IOR [employer]TER[employer]ISE ARCHITECT, Duration: 30 day, Stop date: 08/19/17 8:04:00 [...] te Metoclopramide
10 mg, 2 No Longer [place] mL, Route: IVP, Active 2017 Medical Drug form: INJ, Center Q6H, Dosing Weight 107.727, kg, PRN Nausea & Vomiting, Start date: 07/20/17 7:05:00 SENIOR ENTER[employer]ISE ARCHITECT, Duration: 30 day, Stop date: 08/19/17 7:04:00 CDT
Notes : (Same as: Reglan) Ondansetron
4 mg, 2 mL, No Longer [place] Route: IVP, Drug Active 2017 Medical form: INJ, Q8H, Center Dosing Weight 107.727, kg, PRN Nausea & Vomiting, Start date: 07/20/17 7:05:00 SENIOR ENTERPRISE ARCHITECT, Duration: 30 day, Stop date: 08/19/17 7:04:00 CDT
Notes : (Same as: Noah) MEDICATION WASTE Product Size: 4 mg Product Wasted: ___ mg phenol 5 MG/ML
1 spray, No Longer [place] Mucosal [place] Route: PO, PRN, Active 2017 Medical Drug form: SPR, [place] PRN Pain Score 4-6, Start date: 07/20/17 7:05:00 SENIOR ENTER[employer]ISE ARCHITECT, Duration: 30 day, Stop date: 08/19/17 8:04:00 CDT
Notes: Chloraseptic [place] (Same as: Chloraseptic, Sore Throat [place]) WASTE: F/P - Black; E - [facility] Robaxin
500 mg, 1 No Longer [place] tab, Route: PO, Active 2017 Medical Drug form: TAB, Center TID, Dosing Weight 107.727, kg, PRN Muscle Spasms, Start date: 07/20/17 7:05:00 SENIOR ENTERPRISE ARCHITECT, Duration: 30 day, Stop date: 08/19/17 7:04:00 CDT
Notes: (Same as:Robaxin) Acetaminophen
2 tab, No Longer [facility] 325 MG / Route: PO, Drug Active 2017 Medical Hydrocodone Form: TAB, [place] Bitartrate 10 MG Dosing Weight Oral Tablet 107.727, kg, [[place] 10/325] Q4H, PRN Pain Score 4-6, Start date: 07/20/17 7:05:00 SENIOR ENTERPRISE ARCHITECT, Duration: 30 day, Stop date: 08/19/17 7:04:00 CDT
Notes: Do not exceed 4gm/day of acetaminophen. (Same as: [place] 325/10) Morphine
2 mg, 0.5 No Longer [facility] mL, Route: IVP, Active 2017 Medical Drug form: SOLN, [place] Q4H, Dosing Weight 107.727, kg, PRN Pain Score 7-10, Start date: 07/20/17 7:05:00 SENIOR ENTERPRISE ARCHITECT, Duration: 30 day, Stop date: 08/19/17 7:04:00 CDT
Notes: (Same as:MORPhine Sulfate) Sodium Chloride
1,000 mL, No Longer [place] 0.9% IV 1,000 mL Rate: 50 ml/hr, Active 2017 Medical Infuse over: 20 Center hr, Route: IV, Dosing Weight 107.727 kg, Total Volume: 1,000, Start date: 07/20/17 7:05:00 SENIOR ENTERPRISE ARCHITECT, Duration: 30 day, Stop date: 08/19/17 7:04:00 CDT, 2.31, m2 ceFAZolin +
2 gm, No Longer [facility] sterile water 20 Route: IV, PRE Active 2017 Medical mL OP, Start date: [place] 07/20/17 1:00:00 SENIOR ENTERPRISE ARCHITECT, Duration: 1 day, Stop date: 07/21/17 0:59:00 SENIOR ENTERPRISE ARCHITECT, ABX Indication: Surgical Prophylaxis
Notes: (Same As: Dima Quintero) MEDICATION WASTE Product Size: 1000 mg Product Wasted: ___ mg Tylenol
PO, 0 Active [facility] Refill(s) 2018 [facility] Omeprazole
PO, Daily, Active [facility] 0 Refill(s) 2018 Medical Center Zanaflex
PO, 0 No Longer 07/14/ [place] Refill(s) Active 2018 Medical Center Ambien
PO, Active [facility] Bedtime, 0 2017 Medical Refill(s) Center LYRICA CAPS Active [facility] 2014 Neuro METOPROLOL Active [facility] TARTRATE TABS 2015 Neuro Allergies, Adverse Reactions, Alerts Substance Category Reaction Severity Reaction Status Date Comments Source type Reported Bee Sting Assertion Drug Active [facility] allergy Neuro NKDA Assertion Drug Active [facility] allergy Neuro Immunizations Immunization Date Given Site Status Last Updated Comments Source Results Order Results Value Reference Date Interpretation Comments Source Name Range Vital Signs Vital Sign Value Date Comments Source BMI Calculated 33.3 09/15/2017 [facility] Neuro Weight 102.273 09/15/2017 [facility] Neuro Height 175.26 cm 09/15/2017 [facility] Neuro Heart Rate 64 09/15/2017 [facility] Neuro Temperature Oral (F) 98.1 F 09/15/2017 [facility] Neuro Systolic (mm Hg) 163 09/15/2017 [facility] Neuro Diastolic (mm Hg) 89 09/15/2017 [facility] Neuro Height 177.8 cm 08/04/2017 [facility] BMI Calculated 32.78 08/04/2017 [facility] Neuro Weight 103.636 08/04/2017 [facility] Neuro Heart Rate 65 08/04/2017 [facility] Neuro Temperature Oral (F) 98.3 F 08/04/2017 [facility] Neuro Systolic (mm Hg) 133 08/04/2017 [facility] Neuro Diastolic (mm Hg) 80 08/04/2017 [facility] Neuro Temperature Oral (F) 97.7 F 07/21/2017 [facility] Respitory Rate 18 07/21/2017 [facility] Heart Rate 79 07/21/2017 [facility] Systolic (mm Hg) 129 07/21/2017 [facility] Diastolic (mm Hg) 88 07/21/2017 [facility] Temperature Oral (F) 98.1 F 07/21/2017 [facility] Heart Rate 60 07/21/2017 [facility] Respitory Rate 18 07/21/2017 [facility] Systolic (mm Hg) 128 07/21/2017 [facility] Diastolic (mm Hg) 91 07/21/2017 [facility] Heart Rate 72 07/21/2017 [facility] Temperature Oral (F) 98.8 F 07/21/2017 [facility] Respitory Rate 17 07/21/2017 [facility] Systolic (mm Hg) 148 07/21/2017 [facility] Diastolic (mm Hg) 79 07/21/2017 [facility] BMI Calculated 35.59 07/20/2017 [facility] Height 173.99 cm 07/20/2017 [facility] Weight 107.727 07/20/2017 [facility] BMI Calculated 35.22 07/14/2017 [facility] Height 175.26 cm 07/14/2017 [facility] Weight 108.182 07/14/2017 [facility] Height 175.26 cm 07/09/2017 [facility] Neuro Weight 105.455 07/09/2017 [facility] Neuro BMI Calculated 34.33 07/09/2017 [facility] Neuro Heart Rate 56 07/09/2017 [facility] Neuro Temperature Oral (F) 97.9 F 07/09/2017 [facility] Neuro Systolic (mm Hg) 116 07/09/2017 [facility] Neuro Diastolic (mm Hg) 76 07/09/2017 [facility] Neuro Weight 105.455 06/23/2017 [facility] Neuro BMI Calculated 34.33 06/23/2017 [facility] Neuro Height 175.26 cm 06/23/2017 [facility] Neuro Systolic (mm Hg) 142 06/23/2017 [facility] Neuro Diastolic (mm Hg) 87 06/23/2017 [facility] Neuro Temperature Oral (F) 98.7 F 06/23/2017 [facility] Neuro Heart Rate 53 06/23/2017 [facility] Neuro Weight 240 12/26/2014 [facility] Neuro Height 70 12/26/2014 [facility] Neuro Temperature Oral (F) 97.9 F 12/26/2014 [facility] Neuro Heart Rate 71 12/26/2014 [facility] Neuro Systolic (mm Hg) 107 12/26/2014 [facility] Neuro Diastolic (mm Hg) 68 12/26/2014 [facility] Neuro Encounters Location Location Encounter Encounter Reason Attending ADM DC Status Source Details Type Number For Provider Date Date Visit [facility] Office [id number] 12/26 [facility] Neuroscienc Visit 7870 MD /2014 Neuro e [facility] [id number] GAURAV BOLAND 02/04 Active [facility] Phone [id number] 05/05 05/07 [facility] Neurosurger Message /2016 Neuro y [facility] Phone [id number] 05/11 05/13 [facility] Neurosurger Message /2016 Neuro y [facility] Spine Phone [id number] 05/19 05/21 [facility] Message /2017 Neuro Outpatient [id number] GAURAV BOLAND 06/02 Active [facility] Ambulatory [id number] [place] 06/02 06/02 [facility] Pre-Reg Hair /2017 Neuro Outpatient [id number] GAURAV BOLAND 06/23 Active [facility] Out[facility] [id number] [place] 06/23 06/24 [facility] Hair /2017 Neuro [facility] Spine Phone [id number] 07/01 07/03 [facility] Message /2017 Neuro M[facility] Phone [id number] 07/07 07/09 [facility] Neurosurger Message /2017 Neuro y [facility] Phone [id number] 07/07 07/09 [facility] Neurosurger Message /2017 Neuro y [facility] Outpatient [id number] GAURAV BOLAND 07/09 [facility] Out[facility] [id number] [place] 07/09 07/10 [facility] Hair /2017 [facility] [id number] Gaurav Boland 07/20 07/21 [facility] Outpatient /2017 [facility] Outpatient [id number] GAURAV BOLAND 07/20 [facility] Outpatient [id number] [place] 07/20 07/21 [facility] Hair /2017 Neuro [facility] Spine Phone [id number] 07/26 07/28 [facility] Message /2017 Neuro Outpatient [id number] LANA 08/04 Active [facility] Sp[facility] Outpatient [id number] [place] 08/04 08/05 [facility] Hair /2017 Neuro M[facility] Spine Phone [id number] 08/05 08/07 [facility] Message /2017 Neuro [facility] Spine Phone [id number] 08/30 09/01 [facility] Message /2017 Neuro M[facility] Spine Phone [id number] 09/10 09/12 [facility] Message /2017 Neuro M[facility] Spine Phone [id number] 09/14 09/16 [facility] TM Message /2017 Neuro Outpatient [id number] GAURAV BOLAND 09/15 Active [facility] [place] MNA Spine Outpatient [id number] Gaurav Boland 09/15 09/16 [facility] TM /2017 Neuro MNA Spine Phone [id number] 09/15 09/17 [facility] TM Message /2017 Neuro MNA Spine Phone [id number] 10/06 10/08 [facility] TM Message /2017 Neuro M[facility] Spine Phone [id number] 10/19 10/21 [facility] Message /2017 Neuro MNA Spine Phone [id number] 10/19 10/21 [facility] Message /2017 Neuro M[facility] Spine Phone [id number] 10/20 10/22 [facility] Message /2017 Neuro MNA Spine Phone [id number] 10/25 10/27 [facility] Message /2017 Neuro MNA Spine Phone [id number] 10/25 10/27 [facility] Message /2017 Neuro MNA Spine Phone [id number] 10/29 10/31 [facility] Message /2017 Neuro MNA Spine Phone [id number] 11/08 11/10 [facility] Message /2017 Neuro Outpatient [id number] GAURAV TULIO 11/24 Active [facility] [place] Procedures Procedure Code Date Perfomer Comments Source Cervical spinal [id number] 07/20/2017 07/20/17 C4-7 [facility] fusion by anterior ACDF w/instr Neuro technique<sup>1</sup > Cervical spinal [id number] 07/20/2017 07/20/17 C4-7 [facility] fusion by anterior ACDF w/instr Medical technique<sup>1</sup Center > ACL - Reconstruction [id number] [facility] of anterior cruciate Neuro ligament Cyst<sup>2</sup> [id number] removed from [facility] left foot at Neuro age 5. Cyst<sup>1</sup> [id number] removed from [facility] left foot at Neuro age 5. ACL - Reconstruction [id number] [facility] anterior cruciate Medical ligament Center Cyst<sup>2</sup> [id number] removed from [facility] left foot at Medical age 5. Center
--- OUTSIDE RECORDS SUMMARY | 2017-11-13 15:42 | XMS REPORT | Summary of Care ---
:1965 Author Organization [facility] Address [address] [place] [address]- Encounter HQ José Antonio_mauri(FIN) [phone] Date(s): 08/05/17 - 08/06/17 [facility] [address] [place] [address] [address] [place] [phone] Vital Signs No data available for this section Problem List Condition Effective Dates Status Health Status Informant Obesity(Confirmed) Active Allergies, Adverse Reactions, Alerts Substance Reaction Severity Status Bee Sting Active Medications Mobic 15 mg oral tablet 15 mg=1 tab, PO, Daily, # 90 tab, 0 Refill(s), Pharmacy: [facility] Start Date: 08/05/17 Stop Date: 09/15/17 Status: CompletedVoltaren Topical 1% topical gel 4 gm=1 appl, TOP, BID, PRN Apply to affected area, apply small amount to affected area, # 100 gm, 0 Refill(s), Pharmacy: [id number] Start Date: 08/05/17 Status: Ordered Results No data available for this section Immunizations No data available for this section Procedures Procedure Date Related Diagnosis Body Site Status Cervical spinal fusion by anterior 07/20/17 Completed technique1 ACL - Reconstruction of anterior Completed cruciate ligament Cyst2 Completed 27/10/17 C4-7 ACDF w/[id number] from left foot at age 5. Social [...]
--- OUTSIDE RECORDS SUMMARY | 2017-11-13 15:42 | XMS REPORT | Continuity of Care Document ---
:1965 Author Organization [facility] Care Team Providers Name Role Phone Yuan Kohli MD Unavailable Insurance Providers Payer name Policy type / Policy ID Covered green party ID Policy Aguirre Coverage type [employer] - OPTIONS (PPO) UNITED HEALTHCARE - CHOICE PLUS UNITED HEALTHCARE - OPTIONS (PPO) UNITED HEALTHCARE - OPTIONS (PPO) Encounters Encounter Performer Location Date Office Visit Yuan Kohli MD [facility] Dec 26, 2014 Problems Problem Effective Dates [...]
--- OUTSIDE RECORDS SUMMARY | 2017-11-13 15:42 | XMS REPORT | Summary of Care ---
:1965 Author Organization [facility] Address [address] [facility] [facility] [address] [place] [address]- Encounter HQ Encntr_aliberto(FIN) [phone] Date(s): 11/08/17 - 11/09/17 [facility] [address] [facility] [address] [place] [address] [phone] Vital Signs No data available for this section Problem List Condition Effective Dates Status Health Status Informant Obesity(Confirmed) Active Allergies, Adverse Reactions, Alerts Substance Reaction Severity Status Bee Sting Active Medications methocarbamol 500 mg oral tablet See Instructions, # 84 tab, TAKE ONE TABLET BY MOUTH FOUR TIMES A DAY, Pharmacy : [facility] [id number] Start Date: 11/08/17 Status: Ordered Results No data available for this section Immunizations No data available for this section Procedures Procedure Date Related Diagnosis Body Site Status Cervical spinal fusion by anterior 07/20/17 Completed technique1 ACL - Reconstruction of anterior Completed cruciate ligament Cyst2 Completed 27/10/17 C4-7 ACDF w/[id number] from left foot at age 5. Social [...]
--- NOTE | 2017-11-13 16:27 | EDPHYS ---
Physician Documentation [facility] Name: Freddy Camejo Age: 51 yrs Sex: Male : 1965 Arrival Date: 11/13/2017 Time: 15:42 Bed 27 Private MD: Dallin Hair ED Physician Saluo Quan HPI: 11/13 16:23 This 51 yrs old Male presents to ER via Ambulatory with complaints of Suture rh1 Removal. 16:23 The patient has sutures on the lateral aspect of right calf and right calf. Previous rh1 treatment: The patient was initially treated on November 01, 2017, the care was rendered at [facility], Treatment type: The patient's original treatment included sutures, Outpatient prescription(s): The patient was given prescription(s) for nothing, Previous recheck: the patient has not been checked since the original treatment. Sutures/luciana progress: The patient has no c/o's. The wound is well-healing with no redness, swelling, discharge, or dehiscence reported. The patient has not experienced similar symptoms in the past. The patient has not recently seen a physician. He is here for suture removal at right lower leg. Denies any pain, redness, swelling at site.. Historical: - Allergies: 16:07 BEE STINGS; aj1 - Home Meds: 16:07 Ambien Oral [Active]; Lyrica Oral [Active]; Metoprolol Tartrate Oral [Active]; Naproxen aj1 Oral [Active]; - PMHx: 16:07 Hypertension; neck pain; aj1 - Immunization history:: Adult Immunizations up to date. - Social history:: Smoking status: Patient/guardian denies using tobacco. - Ebola Screening: : Patient denies travel to an Ebola-affected area in the 21 days before illness onset. ROS: 16:23 Constitutional: Negative for fever rh1 16:23 Skin: Positive for laceration(s), Negative for abscesses, cellulitis. Exam: 16:23 Constitutional: This is a well developed, well nourished patient who is awake, alert, rh1 and in no acute distress. Head/Face: Normocephalic, atraumatic. Respiratory: No increased work of breathing. MS/ Extremity: Pulses equal, no cyanosis. Neurovascular intact. Full, normal range of motion. 16:23 Skin: Wound recheck: Suture laceration closure: the wound is healing well, the edges are well approximated, no evidence of dehiscence, no drainage, no erythema, no swelling. 16:23 Neuro: Orientation: is normal, to person, place \T\ time. Mentation: is normal, lucid, able to follow commands, Motor: is normal, moves all fours, Gait: is steady, at a normal pace, without difficulty. Vital Signs: 16:07 BP 154 / 100; Pulse 90; Resp 18; Temp 98.1; Pulse Ox 95% on R/A; Weight 102.51 kg (R); aj1 Height 5 ft. 10 in. (177.80 cm); Pain 0/10; 16:07 Body Mass Index 32.43 (102.51 kg, 177.80 cm) [facility] Procedures: 16:23 Suture/Staple removal: Removed 8 sutures, from right calf and lateral aspect of right rh1 calf, site appears well healed, Patient tolerated well. MDM: 16:17 Patient medically screened. [facility] 16:23 Data reviewed: vital signs, nurses notes, old medical records, and as a result, I will [facility] discharge patient. Data interpreted: Pulse oximetry: on room air is 95 %. Interpretation: normal. Counseling: I had a detailed discussion with the patient and/or guardian regarding: the historical points, exam findings, and any diagnostic results supporting the discharge/admit diagnosis, the need for outpatient follow up, a family practitioner, to return to the emergency department if symptoms worsen or persist or if there are any questions or concerns that arise at home. Administered Medications: No medications were administered Disposition: 17:31 Co-signature as Attending Physician, Saulo Quan MD. rn Disposition: 18 16:26 Discharged to Home. Impression: Encounter for removal of sutures. - Condition is Stable. - Discharge Instructions: Suture Removal, Care After, Incision Care. - Medication Reconciliation Form, Thank You Letter, Antibiotic Education, Prescription Opioid Use form. - Follow up: Dallin Hair MD; When: As needed. Follow up: Emergency Department; When: As needed. - Problem is new. - Symptoms have improved. Signatures: Cee Gann RN RN [facility] Saulo Quan MD MD rn Jones, Rachel, [employer] [facility] Francy, Kristi, RN RN kr2 Corrections: (The following items were deleted from the chart) 16:52 16:26 11/13/2017 16:26 Discharged to Home. Impression: Encounter for removal of kr2 sutures. Condition is Stable. Forms are Medication Reconciliation Form, Thank You Letter, Antibiotic Education, Prescription Opioid Use. Follow up: Dallin Hair; When: As needed. Follow up: Emergency Department; When: As needed. Problem is new. Symptoms have improved. rh1
--- NOTE | 2017-11-13 16:27 | ER ---
Nurse's Notes [facility] Name: Freddy Camejo Age: 51 yrs Sex: Male : 1965 Arrival Date: 11/13/2017 Time: 15:42 Bed 27 Private MD: Dallin Hair Diagnosis: Encounter for removal of sutures Presentation: 11/13 16:05 Presenting complaint: Patient states: I was told to come back and get the sutures in my aj1 leg removed. Incision noted to the right calf. Transition of care: patient was not received from another setting of care. Onset of symptoms was November 13, 2017. Risk Assessment: Do you want to hurt yourself or someone else? Patient reports no desire to harm self or others. Initial Sepsis Screen: Does the patient meet any 2 criteria? No. Patient's initial sepsis screen is negative. Does the patient have a suspected source of infection? No. Patient's initial sepsis screen is negative. Care prior to arrival: None. 16:05 Method Of Arrival: Ambulatory aj1 16:05 Acuity: LILY 5 aj1 Triage Assessment: 16:07 General: Appears in no apparent distress. comfortable, Behavior is calm, cooperative, aj1 appropriate for age. Pain: Denies pain. Historical: - Allergies: 16:07 BEE STINGS; aj1 - Home Meds: 16:07 Ambien Oral [Active]; Lyrica Oral [Active]; Metoprolol Tartrate Oral [Active]; Naproxen aj1 Oral [Active]; - PMHx: 16:07 Hypertension; neck pain; aj1 - Immunization history:: Adult Immunizations up to date. - Social history:: Smoking status: Patient/guardian denies using tobacco. - Ebola Screening: : Patient denies travel to an Ebola-affected area in the 21 days before illness onset. Screenin:15 Abuse screen: Denies threats or abuse. Denies injuries from another. Nutritional kr2 screening: No deficits noted. Tuberculosis screening: No symptoms or risk factors identified. Fall Risk None identified. Assessment: 16:13 General: Appears in no apparent distress. comfortable, well groomed, well developed, kr2 well nourished, Behavior is calm, cooperative, appropriate for age. Pain: Denies pain. Neuro: Level of Consciousness is awake, alert, obeys commands, Oriented to person, place, time, situation, Appropriate for age. Cardiovascular: Capillary refill < 3 seconds in bilateral fingers Patient's skin is warm and dry. Respiratory: Airway is patent Respiratory effort is even, unlabored, Respiratory pattern is regular, symmetrical. Derm: Skin is intact, is healthy with good turgor, Skin is pink, warm \T\ dry. Sutures to lacerations on right calf. No redness swelling or drainage. Musculoskeletal: Circulation, motion, and sensation intact. Vital Signs: 16:07 BP 154 / 100; Pulse 90; Resp 18; Temp 98.1; Pulse Ox 95% on R/A; Weight 102.51 kg (R); aj1 Height 5 ft. 10 in. (177.80 cm); Pain 0/10; 16:07 Body Mass Index 32.43 (102.51 kg, 177.80 cm) 1 ED Course: 15:42 Patient arrived in ED. sb2 15:43 Dallin Hair MD is Private Physician. sb2 15:48 [facility]erson [facility] rh1 15:48 Saulo Quan MD is Attending Physician. rh1 16:06 Triage completed. aj1 16:07 Arm band placed on Patient placed in an exam room. aj1 16:13 Kristi Sen, ANITA is Primary Nurse. kr2 16:16 Bed in low position. Call light in reach. Side rails up X 1. Pulse ox on. NIBP on. Door kr2 closed. 16:25 Dallin Hair MD is Referral Physician. rh1 16:51 No provider procedures requiring assistance completed. Patient did not have IV access kr2 during this emergency room visit. Administered Medications: No medications were administered Outcome: 16:26 Discharge ordered by . rh1 16:51 Discharged to home ambulatory. kr2 16:51 Condition: good 16:51 Discharge instructions given to patient, Instructed on discharge instructions, follow up and referral plans. Demonstrated understanding of instructions, follow-up care. 16:52 Patient left the ED. kr2 Signatures: Cee Gann RN RN aj1 Malou Pierson, KOJO IN PROCESSING INSTRUCTOR 1 Kristi Sen, ANITA RN kr2 Nikki Loo sb2
[2017-11-13 16:56] VITALS: BP 154/100; TEMP 98.1; O2SAT 95
== END 2017-11-13 16:52 | disposition home or self-care (01) ==
LOC: ER 15:38
DX: S81.811D Laceration without foreign body, right lower leg, subsequent encounter (principal); X58.XXXD Exposure to other specified factors, subsequent encounter; Z91.030 Bee allergy status; I10 Essential (primary) hypertension
CPT/HCPCS: 99283